=== PATIENT | female | born 1945 | race Caucasian/White ===

== ENCOUNTER 2025-06-06 06:32 | Day surgery (SDC) | payer SELFPAY ==
[~2025-06-06 06:32] MED LIST: Carbachol 0.01% Intraocular 1.5 ML Vial ONE; Dexamethasone/Neomycin/Polymyxin B Ophth Oint 3.5 GM Tube ONE; Lidocaine 1% 2 ML ONE; Phenyleprhine/Ketorolac 4 ML Vial ONE; Povidone-Iodine 5% Sterile Ophth Soln 30 ML Bottle ONE; Sodium Chloride 0.9% 10 ML Syringe FLUSH PRN
[2025-06-06] MEDS: Cyclopentolate 1% Opth Soln 2 ML Bottle EYERT SCH (06:50)
[2025-06-06] MEDS: Moxifloxacin 0.5% Ophth Soln 3 ML Bottle EYERT ONE ×2 (07:15→08:20)
[2025-06-06] MEDS ORDERED: fentaNYL 100 MCG/2 ML SDV ONE (07:28)
[2025-06-06] MEDS ORDERED: Midazolam 1 MG/ML 2 ML SDV ONE (07:28)
[2025-06-06] MEDS: Povidone-Iodine 5% Sterile Ophth Soln 30 ML Bottle EYERT ONE (08:20)
[2025-06-06] MEDS: Balanced Salt Solution Ophth Irrig 500 ML Bottle IOCULAR ONE (08:20)
[2025-06-06] MEDS: Phenyleprhine/Ketorolac 4 ML Vial IOCULAR ONE (08:20)
[2025-06-06] MEDS: Lidocaine 1% PF 2 ML SDV INFILT ONE (08:21)
[2025-06-06] MEDS: Chondroitin Sulfate/Hyaluronate Sodium Ophth Inj 0.5 ML Syringe IOCULAR ONE (08:21)
[2025-06-06] MEDS: Dexamethasone/Neomycin/Polymyxin B Ophth Oint 3.5 GM Tube EYERT ONE (08:23)
[2025-06-06] MEDS: acetaZOLAMIDE 500 MG Cap.ER PO ONE (08:57)
== END 2025-06-06 09:20 | disposition home or self-care (01) ==
LOC: VM.SDS 06:32
PROVIDERS: ATTEND Ophthalmology
DX: H26.9 Unspecified cataract (principal)
CPT/HCPCS: 66984; A9270; J0690; J1097; J2003; J2250; J3010; V2632; 00142; 99100; J3490